=== PATIENT | female | born 1935 | race Caucasian/White ===

== ENCOUNTER 2018-05-10 08:40 | Inpatient (IN) | payer OTHER ==
--- NOTE | 2018-05-10 09:06 | CPEKG ---
Heart Rate: 76 RR Interval: 789 P-R Interval: 240 QRSD Interval: 100 QT Interval: 408 QTC Interval: 459 P Diamond: 66 QRS Diamond: -33 T Wave Diamond: 70 EKG Severity - ABNORMAL ECG - EKG Impression: SINUS RHYTHM EKG Impression: FIRST DEGREE AV BLOCK EKG Impression: LEFT AXIS DEVIATION EKG Impression: CONSIDER ANTEROSEPTAL INFARCT Electronically Signed By: Marvin Carrington 10-May-2018 14:16:28
[2018-05-10] MEDS ORDERED: HYDROmorphONE/DILAUDID 1 MG/ML INJ ONE ×2 (09:28→16:32)
[2018-05-10] MEDS ORDERED: HYDROmorphONE/DILAUDID 1 MG/ML INJ IVP ONE ×2 (09:33→11:19)
--- NOTE | 2018-05-10 09:43 | EDPHY ---
H & P Time Seen by Provider: 05/10/18 09:42 HPI/ROS: Chief complaint. Fall, hip pain HPI. 83-year-old female with left hip pain. Here by EMS. Patient has had dizziness both lying down and standing for the past 3 months. Today she was getting ready for breakfast and got dizzy and fell in her apartment. She was unable to get back up. She has pain in her left hip. Denies hitting her head or losing consciousness. No neck pain. She is not on blood thinners. No other injuries. Denies chest discomfort or trouble breathing. No abdominal pain. Patient has frequent falls. Last meal was yesterday evening ROS Constitutional. Dizziness Eyes. no problems with vision ENT. no sore throat, no nasal drainage Cardiovascular. no chest pain Respiratory. no shortness of breath, no cough Abdominal. no abdominal pain, no nausea/vomiting, no diarrhea . no problems urinating MS. Left hip pain Skin. no rash Lymph. no swollen glands Neuro. no headache, dizziness, no difficulty walking or with speech Past Medical/Surgical History: Past medical history is significant for macular degeneration, hypothyroid, dyslipidemia, depression, osteoporosis, TIA, forearm fracture Social History: Single, nonsmoker, no alcohol Smoking Status: Never smoked Physical Exam: General Appearance: Alert well-developed female moderate distress vital signs are stable Eyes: Pupils equal and round no pallor or injection. ENT, Mouth: Mucous membranes are moist. Respiratory: There are no retractions, lungs are clear to auscultation. Cardiovascular: Regular rate and rhythm. Gastrointestinal: Abdomen is soft and nontender, no masses, bowel sounds normal. Neurological: Awake and alert, sensory and motor exams grossly normal. Skin: Warm and dry, no rashes. Musculoskeletal: Neck is supple nontender. No T, L, S spine tenderness Extremities pain to range of motion left hip. Psychiatric: Patient is oriented X 3, there is no agitation. Constitutional: Initial Vital Signs Temperature (C) 36.8 C 05/10/18 08:41 Heart Rate 78 05/10/18 08:41 Respiratory Rate 16 05/10/18 08:41 Blood Pressure 125/67 H 05/10/18 08:41 O2 Sat (%) 88 L 05/10/18 08:41 O2 Delivery Mode Nasal Cannula O2 (L/minute) 2 Allergies/Adverse Reactions: Sulfa (Sulfonamide Antibiotics) Allergy (Verified 05/10/18 08:57) Home Medications: Medication Instructions Recorded Bupropion HCl [Wellbutrin Xl] 300 mg PO DAILY 05/09/16 Levothyroxine [Synthroid 50 mcg 50 mcg PO DAILY 05/09/16 (*)] Multivitamins [Multivitamin (*)] 1 each PO DAILY 05/09/16 Acetaminophen [Tylenol 325mg (*)] 650 mg PO Q6 PRN #0 tab 05/10/16 Cholecalciferol Vit D3 [Vitamin D3 5,000 units PO DAILY 05/10/16 (*)] Herbals/Supplements -Info Only 1 ea PO DAILY 05/10/16 Ibuprofen [Motrin (*)] 400 mg PO Q6 PRN 05/10/16 DULoxetine 05/10/18 Medical Decision Making - Diagnostics EKG Interpretation: EKG interpreted by me shows normal sinus rhythm with first-degree AV block. Left axis deviation. QRS otherwise normal. No significant ST elevation or depression. No arrhythmia. The rate is 76 Imaging Results: Imaging Impressions Hip X-Ray 05/10/18 08:55 Impression: Acute angulated and impacted left femoral neck fracture. Chest X-Ray 05/10/18 09:49 Impression: 1. Clear lungs. No acute process. 2. No displaced rib fractures. 3. Large hiatal hernia unchanged. X-ray of the left hip shows a femoral neck fracture. Chest x-ray shows probably large hiatal hernia. No pneumonia Procedures: Patient received IV fentanyl prior to arrival. She is given a 0.5 mg of Dilaudid in the emergency department ED Course/Re-evaluation: Re-evaluation at 10:30 a.m.. Patient is stable. Patient and I discussed imaging and lab results. We discussed treatment plan including recommendation for hospitalization and surgery. She expresses understanding and agreement. Pain is well controlled. I consulted and discussed case with Dr. Borges for Orthopedics. I consulted discussed case Dr. Cerrato, hospitalist, who agrees to the admission Differential Diagnosis: Fall with dizziness. The etiology of this is not clear. She does have a hip fracture. - Data Points Laboratory Results: Laboratory Results 05/10/18 08:50 05/10/18 08:50 05/10/18 05/10/18 05/10/18 08:50 08:50 08:50 WBC 4.96 10^3/uL 10^3/uL (3.80-9.50) RBC 5.23 10^6/uL 10^6/uL (4.18-5.33) Hgb 16.0 g/dL g/dL (12.6-16.3) Hct 47.3 % H % (38.0-47.0) MCV 90.4 fL fL (81.5-99.8) MCH 30.6 pg pg (27.9-34.1) MCHC 33.8 g/dL g/dL (32.4-36.7) RDW 13.4 % % (11.5-15.2) Plt Count 322 10^3/uL 10^3/uL (150-400) MPV 9.6 fL fL (8.7-11.7) Neut % (Auto) 64.9 % % (39.3-74.2) Lymph % (Auto) 21.2 % % (15.0-45.0) Hardin % (Auto) 11.3 % % (4.5-13.0) Eos % (Auto) 1.8 % % (0.6-7.6) Baso % (Auto) 0.6 % % (0.3-1.7) Nucleat RBC Rel Count 0.0 % % (0.0-0.2) Absolute Neuts (auto) 3.22 10^3/uL 10^3/uL (1.70-6.50) Absolute Lymphs (auto) 1.05 10^3/uL 10^3/uL (1.00-3.00) Absolute Monos (auto) 0.56 10^3/uL 10^3/uL (0.30-0.80) Absolute Eos (auto) 0.09 10^3/uL 10^3/uL (0.03-0.40) Absolute Basos (auto) 0.03 10^3/uL 10^3/uL (0.02-0.10) Absolute Nucleated RBC 0.00 10^3/uL 10^3/uL (0-0.01) Immature Gran % 0.2 % % (0.0-1.1) Immature Gran # 0.01 10^3/uL 10^3/uL (0.00-0.10) PT 13.0 SEC SEC (12.0-15.0) INR 0.96 (0.83-1.16) APTT 27.3 SEC SEC (23.0-38.0) Sodium 140 mEq/L mEq/L (135-145) Potassium 4.2 mEq/L mEq/L (3.3-5.0) Chloride 104 mEq/L mEq/L (97-110) Carbon Dioxide 26 mEq/l mEq/l (22-31) Anion Gap 10 mEq/L mEq/L (8-16) BUN 21 mg/dL mg/dL (7-23) Creatinine 0.8 mg/dL mg/dL (0.6-1.0) Estimated GFR > 60 Glucose 101 mg/dL H mg/dL (70-100) Calcium 10.0 mg/dL mg/dL (8.5-10.4) Medications Given: Discontinued Medications Hydromorphone HCl (Dilaudid) 0.5 mg IVP EDNOW ONE Stop: 05/10/18 09:34 Last Admin: 05/10/18 09:35 Dose: 0.5 mg Hydromorphone HCl (Dilaudid) 0.5 mg IVP EDNOW ONE Stop: 05/10/18 11:20 Last Admin: 05/10/18 11:20 Dose: 0.5 mg Departure - Departure Disposition: [facility] Inpatient Acute Clinical Impression: Closed left hip fracture Qualifiers: Encounter type: initial encounter Qualified Code(s): S72.002A - Fracture of unspecified part of neck of left femur, initial encounter for closed fracture Condition: Fair
[2018-05-10 10:02] LABS: PLATELET COUNT 322 10^3/uL (150-400)
[2018-05-10 10:04] LABS: INR 0.96 (0.83-1.16)
[2018-05-10] MEDS ORDERED: ONDANSETRON DISINTEGRATING 4 MG TAB PO PRN (10:44)
[2018-05-10] MEDS ORDERED: ACETAMINOPHEN 325 MG TAB PO PRN (10:44)
[2018-05-10] MEDS ORDERED: DOCUSATE SODIUM 100 MG CAP PO PRN (12:40)
--- NOTE | 2018-05-10 13:09 | GHP ---
[f rep st] HISTORY AND PHYSICAL DATE OF ADMISSION: 05/10/2018 CHIEF COMPLAINTS: Left hip pain. HISTORY OF PRESENT ILLNESS: An 83-year-old female, history of TIA, macular degeneration, intermitten t vertigo presenting with left hip pain. This morning she was getting ready for breakfast and got di zzy and fell in her apartment and was unable to get up. Developed pain in her left hip immediately, 7/10 now. Did not hit her head. Denies loss of consciousness. No prodromal chest pain, shortness o f breath, palpitations. Denies fevers, chills, or sweats. No nausea, vomiting, diarrhea. No dysuri a or urinary frequency. States she uses her walker 07/05. Per daughter, has not complained of dizzy spells for the past 2 years, but this apparently has been occurring in the last couple of months. Sheri ragsdale notes this when she moves her head side to side while lying in bed. No slurred speech, unstable ga it or focal weakness. X-ray obtained in the ED showing a left femoral neck fracture. REVIEW OF SYSTEMS: I completed a 10-point review of systems, negative except as noted in HPI. PAST MEDICAL HISTORY: Vertigo, polio, depression, macular degeneration, TIA, hyperlipidemia, heart m urmur, hypothyroidism. PAST SURGICAL HISTORY: ORIF of left forearm and humerus. FAMILY HISTORY: Dad with heart disease. ALLERGIES: Sulfa. SOCIAL HISTORY: She lives at [facility] and [facility]. No alcohol, tobacco or illicit' s. HOME MEDICATIONS: Wellbutrin 150 mg daily, Advil PM nightly, Colace, vitamin D3 5000 units daily, le vothyroxine 50 mcg daily, ibuprofen three times daily, herbal supplement, Cymbalta 30 mg daily. PHYSICAL EXAMINATION: VITAL SIGNS: Temperature 36.8, blood pressure 125/67, heart rate in the 80s, respiration is 88 on room air, 94% on 2 L. GENERAL: Well appearing, lying in bed, no acute distress . HEENT: PERRLA. Dry mucous membranes. CV: Regular rate, rhythm. LUNGS: Clear anteriorly. ABD OMEN: Soft, nontender, nondistended. Positive bowel sounds. : No Richter. MUSCULOSKELETAL: Left leg is shortened. NEUROLOGIC: 2 through 12 intact. Vertigo is elicited with a [id number]-xips head m ovements. No nystagmus. PSYCH: She is alert and oriented x3. LABS: WBC 4, hemoglobin 16, hematocrit 47, coags within normal. Sodium 140, potassium 4.2, chloride 104, carbon dioxide 26, BUN 21, creatinine 0.8, glucose 101, calcium 10. Troponin 0.00. Chest x-ray personally reviewed by me, a large hiatal hernia. Hip x-ray personally reviewed, left fe moral neck fracture. EKG is personally reviewed by me, first-degree heart block. ASSESSMENT/PLAN: 1. Left femoral neck fracture: This appears to be mechanical with dizziness. She denies loss of co nsciousness or prodromal symptoms. Will monitor on telemetry. Dr. Borges to consult. She is n.p. o., IV fluids. 2. Dizziness: Initial troponin EKG negative for ischemia. Check a urinalysis to rule out urinary t ract infection. Check a TSH. Does appear to be benign paroxysmal positional vertigo given symptoms and dizziness elicited on my exam. We will have PT/OT evaluate for exercises. Her nightly Benadryl medication may be contributing. I will discontinue this and give her melatonin. 3. Hyperlipidemia. She is not on a statin. 4. Depression. Cymbalta and Wellbutrin. 5. History of a transient ischemic attack. Monitor on telemetry. 6. Hypothyroidism. Levothyroxine. 7. Acute left hip pain due to fracture. Schedule Tylenol, low-dose opioids. 8. Deep venous thrombosis. Prophylaxis sequential compression devices. 9. Diet n.p.o. for procedure. DISPOSITION: Patient warrants inpatient admission for acute fracture, a surgical consultation and PT . /[id number]/MODL
[2018-05-10] MEDS: ONDANSETRON 4 MG/2 ML VIAL IVP PRN ×2 (14:06→22:25)
[2018-05-10] MEDS: NS 1,000 ML IV SCH (14:06)
[2018-05-10] MEDS ORDERED: BUPIVACAINE/EPI 0.5% 30 ML SDV ONE (16:19)
[2018-05-10] MEDS ORDERED: ceFAZolin 1 GM/5 ML SYR ONE ×2 (16:20→19:09)
[2018-05-10] MEDS ORDERED: LR 1,000 ML IV ONE (16:36)
[2018-05-10] MEDS: HYDROmorphONE/DILAUDID 2 MG/ML INJ IVP PRN ×2 (16:39→17:39)
[2018-05-10] MEDS ORDERED: ceFAZolin 2 GM/DEXTROSE 100 ML IV ONE (17:37)
--- NOTE | 2018-05-10 18:05 | GCON ---
[f rep st] CONSULTATION REASON FOR CONSULTATION: Left femoral neck fracture. HPI: Geetha is an 83-year-old female, who had a fall today at her assisted living apartment, landed on her hip. Was brought to the emergency department ED. X-rays were obtained, which showed an impacted, shortened, angulated femoral neck fracture on the left. Decision made to proceed with a hemiarthroplasty on the left. PRIOR MEDICAL HISTORY: TIA, vertigo, hyperlipidemia, heart murmur, hypothyroidism, macular degeneration, depression. PRIOR SURGICAL HISTORY: Open reduction and internal fixation to a forearm fracture sustained in a fall. ALLERGIES: Sulfa medication gives her hives. MEDICATIONS: Wellbutrin 150 mg daily, Cymbalta 30 mg, levothyroxine 50 mcg, Advil PM, vitamin D3, ibuprofen. REVIEW OF SYSTEMS: No shortness of breath. No chest pain. Is complaining, obviously, of left hip pain. PHYSICAL EXAM: GENERAL: She is alert and oriented x3. Her kids are at the bedside. Her daughter is her power of attorney general. Left hip skin is intact. There is some ecchymosis over the greater trochanter. Leg is shortened and internally rotated. HEENT: Normocephalic atraumatic. Extraocular muscles intact. NECK: Supple. There is no lymphadenopathy and no JVD. CHEST: Clear to auscultation. CARDIOVASCULAR: Regular rate and rhythm. ABDOMEN: Soft, nontender, nondistended. EXTREMITIES: Left hip skin intact. Ecchymosis over greater trochanter. Compartments are soft. 5/5 ankle dorsiflexion and plantar flexion strength. 1+ dorsalis pedis and posterior tibial pulses. X-RAYS: Three views of the hip taken today in the emergency department show a shortened, impacted, angulated left femoral neck fracture. ASSESSMENT: Femoral neck fracture, displaced, left. PLAN: Given her age, history of falls, I think the best course of action would be to proceed with a bipolar hemiarthroplasty on the left. That will allow her to mobilize a bit easier, full weightbearing. We will get this set up. Risks and benefits including infection, blood clots, and 1% dislocation rate were all discussed. She understands these risks. The daughter did sign the consent form as a power of attorney general. /[id number]/MODL MTDD
[2018-05-10] MEDS ORDERED: fentaNYL 100 MCG/2 ML INJ ONE ×3 (18:26→20:22)
[2018-05-10] MEDS ORDERED: PROPOFOL 200 MG/20 ML VIAL ONE (18:27)
[2018-05-10] MEDS ORDERED: LIDOCAINE 2% 5 ML SDV ONE (18:28)
[2018-05-10] MEDS ORDERED: ROCURONIUM 50 MG/5 ML VIAL ONE (18:37)
--- NOTE | 2018-05-10 19:04 | PDANEPAE ---
ANE Past Medical History - Cardiovascular History Hx Hypertension: No Hx Arrhythmias: No Hx Chest Pain: No Hx CHF / Valvular Disease: No Hx Palpitations: No - Pulmonary History Hx COPD: No Hx Asthma/Reactive Airway Disease: No Hx Recent Upper Respiratory Infection: No Hx Oxygen in Use at Home: No Hx Sleep Apnea: No Sleep Apnea Screening Result - Last Documented: Negative - Endocrine History Hx Diabetes: No ANE Review of Systems Review of systems is: negative Review of Systems: - Exercise capacity Exercise capacity: >=4 METS ANE Patient History - Allergies Allergies/Adverse Reactions: Sulfa (Sulfonamide Antibiotics) Allergy (Verified 05/10/18 08:57) - Home Medications Home medications: home medication list seen and reviewed Home Medications: Levothyroxine [Synthroid 50 mcg (*)] 50 mcg PO DAILY 05/09/16 [Last Taken Unknown] Cholecalciferol Vit D3 [Vitamin D3 (*)] 5,000 units PO DAILY 05/10/16 [Last Taken Unknown] Herbals/Supplements -Info Only 1 ea PO DAILY 05/10/16 [Last Taken Unknown] Ibuprofen [Motrin (*)] 400 mg PO TID 05/10/16 [Last Taken Unknown] DULoxetine [Cymbalta 30 MG (*)] 30 mg PO DAILY 05/10/18 [Last Taken Unknown] Docusate Sodium [Colace 100 MG (*)] 100 mg PO DAILY PRN 05/10/18 [Last Taken Unknown] Ibuprofen/Diphenhydramine Cit [MOTRIN PM CAPLET] 1 each PO HS 05/10/18 [Last Taken Unknown] buPROPion XL [Wellbutrin Xl] 150 mg PO DAILY 05/10/18 [Last Taken Unknown] - NPO status NPO Since - Liquids (Date): 05/10/18 NPO Since - Liquids (Time): 00:00 NPO Since - Solids (Date): 05/10/18 NPO Since - Solids (Time): 00:00 - Smoking Hx Smoking Status: Never smoked ANE Labs/Vital Signs - Labs Result Diagrams: 05/10/18 08:50 05/10/18 08:50 - Vital Signs Blood Pressure: 127/83 Heart Rate: 95 Respiratory Rate: 15 O2 Sat (%): 95 Height: 160.02 cm Weight: 63.503 kg ANE Physical Exam - Airway Neck exam: FROM Mallampati Score: Class 2 Mouth exam: normal dental/mouth exam - Pulmonary Pulmonary: no respiratory distress - Cardiovascular Cardiovascular: regular rate and rhythym - ASA Status ASA Status: II, E ANE Anesthesia Plan Anesthesia Plan: general endotracheal anesthesia Urgent/Emergent Case: Ralph orellana completed preop but documented later for safe timely pt care
[2018-05-10] MEDS ORDERED: HYDROmorphONE/DILAUDID 2 MG/ML INJ ONE (19:05)
[2018-05-10] MEDS ORDERED: ceFAZolin 1 GM VIAL ONE (19:08)
--- NOTE | 2018-05-10 19:15 | POSTANESTH ---
Post Anesthetic Evaluation Cardiovascular Status: Normal, Stable Respiratory Status: Normal, Stable Level of Consciousness/Mental Status: Can Participate in Eval, Moderately Sleepy Pain Control: Adequate, Prn Tx Ordered Nausea/Vomiting Control: Adequate, Prn Tx Ordered Complications Possibly Related to Anesthesia: None Noted
[2018-05-10] MEDS ORDERED: DEXAMETHASONE 4 MG/ML VIAL ONE (19:16)
[2018-05-10] MEDS ORDERED: SUGAMMADEX SODIUM 200 MG/2 ML VIAL IVP ONE (19:16)
[2018-05-10] MEDS ORDERED: ONDANSETRON 4 MG/2 ML VIAL ONE (19:16)
[2018-05-10] MEDS ORDERED: oxyCODONE IR 5 MG TAB PO PRN (19:36)
[2018-05-10] MEDS ORDERED: ACETAMINOPHEN 500 MG TAB PO PRN (19:36)
[2018-05-10] MEDS ORDERED: LR 500 ML IV PRN (19:36)
[2018-05-10] MEDS ORDERED: HYDROmorphONE/DILAUDID 1 MG/ML INJ IVP PRN (19:36)
[2018-05-10] MEDS ORDERED: PROMETHAZINE HCL 25 MG/ML INJ IVP PRN (19:36)
[2018-05-10] MEDS ORDERED: fentaNYL 100 MCG/2 ML INJ IVP PRN (19:36)
[2018-05-10] MEDS ORDERED: NALOXONE HCL 0.4 MG/ML INJ IVP PRN (19:36)
[2018-05-10] MEDS ORDERED: ONDANSETRON 4 MG/2 ML VIAL IVP PRN (19:36)
[2018-05-10] MEDS ORDERED: HYDROCODONE/APAP 5/325 TAB PO PRN (19:36)
[2018-05-10] MEDS ORDERED: ALBUTEROL 3 ML DEYVIAL IH PRN (19:36)
[2018-05-10] MEDS ORDERED: LABETALOL HCL 5 MG/ML 20 ML MDV IVP PRN (19:36)
--- NOTE | 2018-05-10 19:58 | POSTOPPROG ---
Post Op Note Date of Operation: 05/10/18 Surgeon: Nasir Borges Records Analysis Manager: dickson Anesthesiologist: joesph Anesthesia: GET(General Endotracheal) Pre-op Diagnosis: Lt fem neck fx Post-op Diagnosis: same Procedure: bipolar hemiarthroplasty Inf/Abcess present in the surg proc area at time of surgery?: No EBL: 50-100 Complications: none
[2018-05-10] MEDS ORDERED: D5W 1/2 NS W/ 20 KCl/L 1,000 ML IV SCH (20:00)
--- NOTE | 2018-05-10 20:22 | GOP ---
[f rep st] OPERATIVE REPORT DATE OF OPERATION: 05/10/2018 SURGEON: Nasir Borges MD CARE ATTENDANT: Aman Ness CST, [facility] ANESTHESIA: General. PREOPERATIVE DIAGNOSIS: Left femoral neck fracture. POSTOPERATIVE DIAGNOSIS: Left femoral neck fracture. PROCEDURE PERFORMED: Bipolar hemiarthroplasty, left. FINDINGS: ESTIMATED BLOOD LOSS: 100 mL. INDICATIONS: The patient is an 83-year-old female, who slipped and fell, sustained an impacted displ aced femoral neck fracture on the left. Decision was made to proceed with a hemiarthroplasty. DESCRIPTION OF PROCEDURE: After full informed consent was obtained, patient taken to the operating r oom, placed supine on the operating table. Time-out was performed. Patient was identified. Correct site was identified, matched to the radiographs in the room. She received 2 g of Ancef preoperative ly. Following the induction of general endotracheal tube anesthesia, left lower extremity was preppe d and draped in usual sterile fashion. She was positioned in the lateral position on the pegboard. All bony prominences well padded. Following the sterile prep, I made a standard posterior incision. Soft tissues were carefully dissected. I incised the IT band and the gluteal muscles. They were no t much external rotators remaining. I took those down, tagged them for later repair, freshened up th e femoral neck cut, and removed the head and neck. We trialed a head, measured a 44, trialed a 44, 4 5, and 46. 46 cup gave us the best stability and fit. We then broached the femur up to a size 7 wit h good stability, trialed a neutral head 127 degree and +4. The +4 gave us a little too length and t he hip was tight, so I backed down to a 0, removed all the trial implants, irrigated the wound, place d the final stem and the ball configuration, and tapped it in place. Reduced the hip a final time. Again good stability, good leg length mormonism. Wound was irrigated a final time. External rotat ors were repaired back to the greater trochanter using #2 FiberWire. Superficial layers closed with 0 Vicryl. Skin superficial layers closed with 2-0 Vicryl. Skin was closed with ervin. I instille d 25 mL of 0.5% Marcaine with epinephrine on the incision. Sterile dressing was applied. Adductor w edge. Patient was transferred back to her hospital bed, and taken to the recovery room in satisfacto ry condition. There were no immediate intraoperative complications. Aman Ness's assistance was r equired throughout the entire case. IMPLANTS USED: A Richard bipolar size 46 and 26+ 0 head. 127-degree Accolade 2 size 7 femoral stem. COMPLICATIONS: None. DRAINS: None. /[id number]/MODL
[2018-05-10] MEDS: ACETAMINOPHEN 500 MG TAB PO SCH ×2 (21:51→22:30)
[2018-05-10] MEDS: IBUPROFEN 200 MG TAB PO SCH ×2 (21:52→22:30)
[2018-05-10] MEDS: MELATONIN 3 MG TAB PO SCH (22:30)
--- NOTE | 2018-05-11 08:04 | PDMN ---
Medical Necessity Medical necessity: Pt meets INPT criteria per MD as of 05/10/18 and [facility] S-600 Hip : Displaced Fracture of Femoral Neck, Hemiarthroplasty (L femoral neck fracture requiring bipolar hemiarthroplasty, left; est. LOS >2 MN).
[2018-05-11] MEDS ORDERED: PROMETHAZINE HCL 25 MG/ML INJ IVP PRN (08:43)
[2018-05-11] MEDS ORDERED: Herbals/Supplements -Info Only PO SCH (09:00)
[2018-05-11] MEDS: CHOLECALCIFEROL VIT D3 1,000 UNITS TAB PO SCH (10:16)
[2018-05-11] MEDS: ACETAMINOPHEN 500 MG TAB PO SCH ×3 (10:17→20:25)
[2018-05-11] MEDS: buPROPion XL 150 MG TAB PO SCH (10:19)
[2018-05-11] MEDS: DULoxetine 30 MG CAP PO SCH (10:20)
[2018-05-11] MEDS: IBUPROFEN 200 MG TAB PO SCH (10:20)
[2018-05-11] MEDS: LEVOTHYROXINE 50 MCG TAB PO SCH (10:20)
[2018-05-11] MEDS: NS 1,000 ML IV SCH (11:46)
[2018-05-11] MEDS ORDERED: LACTULOSE 20 GM/30 ML UDCUP PO PRN (12:48)
[2018-05-11] MEDS ORDERED: BISACODYL 10 MG SUPP PR PRN (12:48)
[2018-05-11] MEDS: POLYETHYLENE GLYCOL 3350 17 GM PKT PO PRN (13:22)
[2018-05-11] MEDS: ENOXAPARIN 40 MG/0.4 ML SYR SC SCH (13:22)
[2018-05-11] MEDS: oxyCODONE IR 5 MG TAB PO PRN ×2 (13:41→20:27)
--- NOTE | 2018-05-11 13:42 | HOSPPROG ---
Hospitalist Progress Note Assessment/Plan: #Left femoral neck fracture: s/p hemiarthroplasty -schedule APAP, 2.5mg oxycodone PRN #Dizzy/BPPV: PT for Eply exercises -normal TSH, UA pending # # Objective: Vital Signs Temp Pulse Resp BP Pulse Ox 36.7 C 74 19 108/55 L 93 05/11/18 11:59 05/11/18 11:59 05/11/18 11:59 05/11/18 11:59 05/11/18 11:59 Laboratory Results 05/11/18 04:20 05/11/18 04:20 05/10/18 05/11/18 05/12/18 05:59 05:59 05:59 Intake Total 2315 Output Total 575 150 Balance 1740 -150 PT 13.0 SEC (12.0-15.0) 05/10/18 08:50 INR 0.96 (0.83-1.16) 05/10/18 08:50 ICD10 Worksheet Patient Problems: Problems Problem Status Onset Closed left hip fracture Acute Hypoxemia Acute Risk for falls Acute Vertigo Acute
--- NOTE | 2018-05-11 16:40 | SOAPPROG ---
SOAP Progress Note Assessment/Plan: Assessment: Plan: 05/11/18 16:39 POD#1 LT hemiarthroplaty PT/OT lovenox will need snf Subjective: feeling ok got oob with PT Objective: dressing c/d/i leg lengths equal calf soft 4/5 df/pf Vital Signs Temp Pulse Resp BP Pulse Ox 37.7 C 93 18 117/73 96 05/11/18 15:45 05/11/18 15:45 05/11/18 15:45 05/11/18 15:45 05/11/18 15:45 Laboratory Results 05/11/18 04:20 05/11/18 04:20 05/10/18 05/11/18 05/12/18 05:59 05:59 05:59 Intake Total 2315 Output Total 575 150 Balance 1740 -150 PT 13.0 SEC (12.0-15.0) 05/10/18 08:50 INR 0.96 (0.83-1.16) 05/10/18 08:50 ICD10 Worksheet Patient Problems: Problems Problem Status Onset Closed left hip fracture Acute Hypoxemia Acute Risk for falls Acute Vertigo Acute
[2018-05-11] MEDS: SENNOSIDES/DOCUSATE SODIUM TAB PO SCH (20:25)
[2018-05-11] MEDS: MELATONIN 3 MG TAB PO SCH (20:27)
[2018-05-12] MEDS: oxyCODONE IR 5 MG TAB PO PRN (03:35)
--- NOTE | 2018-05-12 07:57 | SOAPPROG ---
SOAP Progress Note Assessment/Plan: Assessment: Plan: 05/11/18 16:39 POD#1 LT hemiarthroplaty PT/OT lovenox will need snf 05/12/18 07:57 POD#2 LT hemiarthroplasty lovenox PT/OT Subjective: a little painful o/n Objective: dressing c/d/i leg lengths equal calf soft 4/5 df/pf Vital Signs Temp Pulse Resp BP Pulse Ox 36.8 C 90 17 93/50 L 90 L 05/12/18 02:51 05/12/18 02:51 05/12/18 02:51 05/12/18 02:51 05/12/18 02:51 Laboratory Results 05/11/18 04:20 05/11/18 04:20 05/11/18 05/12/18 05/13/18 05:59 05:59 05:59 Intake Total 2315 600 Output Total 575 650 Balance 1740 -50 PT 13.0 SEC (12.0-15.0) 05/10/18 08:50 INR 0.96 (0.83-1.16) 05/10/18 08:50 ICD10 Worksheet Patient Problems: Problems Problem Status Onset Closed left hip fracture Acute Hypoxemia Acute Risk for falls Acute Vertigo Acute
[2018-05-12] MEDS: CHOLECALCIFEROL VIT D3 1,000 UNITS TAB PO SCH (08:23)
[2018-05-12] MEDS: DULoxetine 30 MG CAP PO SCH (08:24)
[2018-05-12] MEDS: buPROPion XL 150 MG TAB PO SCH (08:25)
[2018-05-12] MEDS: LEVOTHYROXINE 50 MCG TAB PO SCH (08:25)
[2018-05-12] MEDS: ACETAMINOPHEN 500 MG TAB PO SCH ×3 (08:25→20:13)
[2018-05-12] MEDS: POLYETHYLENE GLYCOL 3350 17 GM PKT PO PRN (08:26)
[2018-05-12] MEDS: ENOXAPARIN 40 MG/0.4 ML SYR SC SCH (08:26)
[2018-05-12] MEDS: SENNOSIDES/DOCUSATE SODIUM TAB PO SCH ×2 (08:27→20:14)
[2018-05-12] MEDS: MAGNESIUM HYDROXIDE 30 ML UDCUP PO PRN (08:39)
--- NOTE | 2018-05-12 09:50 | HOSPPROG ---
Hospitalist Progress Note Assessment/Plan: #Left femoral neck fracture: s/p hemiarthroplasty -schedule APAP, 2.5mg oxycodone PRN -working with PT #Dizzy/BPPV: PT for Eply exercises -normal TSH, UA pending #Depression: Cymbalta, Wellbutrin #Hypothyroidism: LT4, TSH normal #Macular degeneration: advised her to use walker 07/05 #h/o TIA: no recent sxs #Diet: regular #DVT ppx: Lovenox #Disp: SNF pending, d/w son at bedside Subjective: didn't sleep last night due to pain Objective: Vital Signs Temp Pulse Resp BP Pulse Ox 37.2 C 95 18 118/75 91 L 05/12/18 08:30 05/12/18 08:30 05/12/18 08:30 05/12/18 08:30 05/12/18 08:30 Laboratory Results 05/11/18 04:20 05/11/18 04:20 05/11/18 05/12/18 05/13/18 05:59 05:59 05:59 Intake Total 2315 600 Output Total 575 650 Balance 1740 -50 PT 13.0 SEC (12.0-15.0) 05/10/18 08:50 INR 0.96 (0.83-1.16) 05/10/18 08:50 - Physical Exam Constitutional: no apparent distress Ears, Nose, Mouth, Throat: moist mucous membranes Cardiovascular: regular rate and rhythym Respiratory: no respiratory distress Gastrointestinal: normoactive bowel sounds Genitourinary: no bladder fullness Skin: warm Musculoskeletal: other (left hip surigical site dressed, C/D/I) Psychiatric: interacting appropriately ICD10 Worksheet Patient Problems: Problems Problem Status Onset Closed left hip fracture Acute Hypoxemia Acute Risk for falls Acute Vertigo Acute
--- NOTE | 2018-05-12 12:40 | ASMTCMCOM ---
CM Note CM Note Notes: Chart reviewed. Pt s/p surgical repair of hip fracture. Per therapy SNF recommended. Family ( daughter Ariadne [phone]) prefers [facility] or [facility]. Referrals placed via allscripts. CM to follow. Plan: DC to SNF when medically cleared for discharge. Date Signed: 05/12/2018 12:39 PM Electronically Signed By:Christel Starkey RN
[2018-05-12] MEDS: MELATONIN 3 MG TAB PO SCH (20:13)
--- NOTE | 2018-05-13 09:38 | PDIAF ---
- Diagnosis Diagnosis: left femoral neck fracture Code Status: Full Code - Medication Management Discharge Medications: Medications to Continue on Transfer Levothyroxine [Synthroid 50 mcg (*)] 50 mcg PO DAILY 05/09/16 [Last Taken Unknown] Cholecalciferol Vit D3 [Vitamin D3 (*)] 5,000 units PO DAILY 05/10/16 [Last Taken Unknown] Herbals/Supplements -Info Only 1 ea PO DAILY 05/10/16 [Last Taken Unknown] DULoxetine [Cymbalta 30 MG (*)] 30 mg PO DAILY 05/10/18 [Last Taken Unknown] Docusate Sodium [Colace 100 MG (*)] 100 mg PO DAILY PRN 05/10/18 [Last Taken Unknown] buPROPion XL [Wellbutrin 150mg XL] 150 mg PO DAILY 05/10/18 [Last Taken Unknown] Acetaminophen [Tylenol ES 500 mg (*)] 650 mg PO TID tab 05/13/18 [Last Taken Unknown] Enoxaparin [Lovenox 40 MG (*)] 40 mg SC DAILY #10 syr 05/13/18 [Last Taken Unknown] Ibuprofen [Motrin (*)] 400 mg PO Q8H PRN #0 05/13/18 [Last Taken Unknown] Melatonin [Melatonin 3 MG (*)] 3 mg PO HS tab 05/13/18 [Last Taken Unknown] Sennosides/Docusate Sodium [Senokot-S] 1 - 2 tab PO BID tab 05/13/18 [Last Taken Unknown] Discharge Medications: Refer to the Discharge Home Medication list for PRN reason. - Orders Services needed: Registered Nurse, Master Electronic Development Technician, Physical Therapy, Occupational Therapy Diet Recommendation: no restrictions on diet Diet Texture: Regular Texture Diet - Follow Up Care Current Providers and Referrals: HAYLEY VELIZ [Other] - As per Instructions Nasir Borges MD [Medical Doctor] -
[2018-05-13] MEDS: CHOLECALCIFEROL VIT D3 1,000 UNITS TAB PO SCH (09:51)
[2018-05-13] MEDS: ACETAMINOPHEN 500 MG TAB PO SCH ×3 (09:53→20:52)
[2018-05-13] MEDS: DULoxetine 30 MG CAP PO SCH (09:53)
[2018-05-13] MEDS: oxyCODONE IR 5 MG TAB PO PRN (09:54)
[2018-05-13] MEDS: LEVOTHYROXINE 50 MCG TAB PO SCH (09:55)
[2018-05-13] MEDS: SENNOSIDES/DOCUSATE SODIUM TAB PO SCH ×2 (09:55→20:53)
[2018-05-13] MEDS: buPROPion XL 150 MG TAB PO SCH (09:55)
[2018-05-13] MEDS: ENOXAPARIN 40 MG/0.4 ML SYR SC SCH (09:56)
[2018-05-13] MEDS: POLYETHYLENE GLYCOL 3350 17 GM PKT PO PRN (09:56)
--- NOTE | 2018-05-13 15:20 | HOSPPROG ---
Hospitalist Progress Note Assessment/Plan: #Left femoral neck fracture: s/p hemiarthroplasty -schedule APAP, 2.5mg oxycodone PRN -working with PT #Dizzy/BPPV: PT for Eply exercises -normal TSH #Pyuria: no sxs, culture pending #Depression: Cymbalta, Wellbutrin #Hypothyroidism: LT4, TSH normal #Macular degeneration: advised her to use walker 24/ #h/o TIA: no recent sxs #Diet: regular #DVT ppx: Lovenox #Disp: will DC to [facility] tomorrow Subjective: no dizziness. Hip pain well-controlled Objective: Vital Signs Temp Pulse Resp BP Pulse Ox 36.9 C 83 18 116/64 93 05/13/18 07:52 05/13/18 07:52 05/13/18 07:52 05/13/18 07:52 05/13/18 07:52 Laboratory Results 05/11/18 04:20 05/11/18 04:20 05/12/18 05/13/18 05/14/18 05:59 05:59 05:59 Intake Total 600 1140 Output Total 650 1475 900 Balance -50 -335 -900 PT 13.0 SEC (12.0-15.0) 05/10/18 08:50 INR 0.96 (0.83-1.16) 05/10/18 08:50 - Time Spent With Patient Time Spent with Patient: greater than 25 minutes Time Spent with Patient: Greater than 25 minutes spent on this patients care, greater than 50% of time spent counseling, educating, and coordinating care regarding the above mentioned plan. - Physical Exam Constitutional: no apparent distress Eyes: PERRL Ears, Nose, Mouth, Throat: moist mucous membranes Cardiovascular: regular rate and rhythym Respiratory: no respiratory distress Gastrointestinal: normoactive bowel sounds Genitourinary: no bladder fullness Skin: warm Musculoskeletal: other (left hip surgical site dressed, C/D/I) Neurologic: AAOx3, CN II-XII Intact ICD10 Worksheet Patient Problems: Problems Problem Status Onset Closed left hip fracture Acute Hypoxemia Acute Risk for falls Acute Vertigo Acute
--- NOTE | 2018-05-13 15:21 | ASMTCMCOM ---
CM Note CM Note Notes: Recieved call from [facility] SNF in [place], they can accept pt tomorrow for rehab. Dtr Ariadne notified and agrees with plan. DC Plan: SNF/ [facility] Date Signed: 05/13/2018 03:20 PM Electronically Signed By:Fern Ashby RN
--- NOTE | 2018-05-13 15:47 | ASMTCMCOM ---
CM Note CM Note Notes: Received call back from Natacha at [facility] at [place], she just realized pt has a [employer] plan and they are not yet in network. She called and notified the patient's dtr Ariadne. of [place] can accept pt but cannot take her until Sunday. CM notified . DC Plan: [facility] [place] Date Signed: 05/13/2018 03:46 PM Electronically Signed By:Fern Ashby RN
--- NOTE | 2018-05-13 19:21 | SOAPPROG ---
SOAP Progress Note Assessment/Plan: Assessment: Mercedes is s/p left hip hemiarthroplasty. She is doing well with mild pain. PE: Dressing changed today. Incision is clean and dry without surrounding erythema, warmth, or drainage. Calf soft to compression without pain. DF/PF intact. NV intact LLE Plan: Plan for discharge to SNF. WBAT LLE. Posterior hip precautions. Abductor wedge to be worn while in bed. PT/OT. Xareto x10 days post op. 05/13/18 19:19 Objective: Vital Signs Temp Pulse Resp BP Pulse Ox 37.2 C 84 16 109/69 92 05/13/18 16:00 05/13/18 16:00 05/13/18 16:00 05/13/18 16:00 05/13/18 16:00 Laboratory Results 05/11/18 04:20 05/11/18 04:20 05/12/18 05/13/18 05/14/18 05:59 05:59 05:59 Intake Total 600 1140 Output Total 650 1475 900 Balance -50 -335 -900 PT 13.0 SEC (12.0-15.0) 05/10/18 08:50 INR 0.96 (0.83-1.16) 05/10/18 08:50 ICD10 Worksheet Patient Problems: Problems Problem Status Onset Closed left hip fracture Acute Hypoxemia Acute Risk for falls Acute Vertigo Acute
[2018-05-13] MEDS: MELATONIN 3 MG TAB PO SCH (20:53)
[2018-05-13] MEDS: MAGNESIUM HYDROXIDE 30 ML UDCUP PO PRN (20:57)
[2018-05-14] MEDS: CHOLECALCIFEROL VIT D3 1,000 UNITS TAB PO SCH (08:58)
[2018-05-14] MEDS: LEVOTHYROXINE 50 MCG TAB PO SCH (08:59)
[2018-05-14] MEDS: buPROPion XL 150 MG TAB PO SCH (08:59)
[2018-05-14] MEDS: SENNOSIDES/DOCUSATE SODIUM TAB PO SCH ×2 (09:03→20:54)
[2018-05-14] MEDS: DULoxetine 30 MG CAP PO SCH (09:04)
[2018-05-14] MEDS: ENOXAPARIN 40 MG/0.4 ML SYR SC SCH (09:05)
--- NOTE | 2018-05-14 09:37 | HOSPPROG ---
Hospitalist Progress Note Assessment/Plan: #Left femoral neck fracture: s/p hemiarthroplasty -schedule APAP. Stop oxycodone due to AMS -plan to DC SNF tomorrow #Acute hypoxic resp failure: no oxygen at home. CXR pending #Dizzy/BPPV: PT for Eply exercises -normal TSH #Pyuria: no sxs, culture pending #Depression: Cymbalta, Wellbutrin #Hypothyroidism: LT4, TSH normal #Macular degeneration: advised her to use walker 07/05 #h/o TIA: no recent sxs #Diet: regular #DVT ppx: Lovenox for 2 wks post-op #Disp: will DC to [facility] tomorrow Subjective: pain controlled. Was confused yesterday after oxycodone Objective: Vital Signs Temp Pulse Resp BP Pulse Ox 36.7 C 72 16 119/69 95 05/14/18 08:00 05/14/18 08:00 05/14/18 08:00 05/14/18 08:00 05/14/18 08:00 Laboratory Results 05/11/18 04:20 05/11/18 04:20 05/13/18 05/14/18 05/15/18 05:59 05:59 05:59 Intake Total 1140 Output Total 1475 1800 300 Balance -335 -1800 -300 PT 13.0 SEC (12.0-15.0) 05/10/18 08:50 INR 0.96 (0.83-1.16) 05/10/18 08:50 - Time Spent With Patient Time Spent with Patient: greater than 25 minutes Time Spent with Patient: Greater than 25 minutes spent on this patients care, greater than 50% of time spent counseling, educating, and coordinating care regarding the above mentioned plan. - Physical Exam Constitutional: no apparent distress Eyes: PERRL Ears, Nose, Mouth, Throat: moist mucous membranes Cardiovascular: regular rate and rhythym Respiratory: other (diminished breath sounds) Gastrointestinal: normoactive bowel sounds Genitourinary: no bladder fullness Skin: warm Musculoskeletal: full muscle strength Neurologic: AAOx3, CN II-XII Intact Psychiatric: interacting appropriately ICD10 Worksheet Patient Problems: Problems Problem Status Onset Closed left hip fracture Acute Hypoxemia Acute Risk for falls Acute Vertigo Acute
[2018-05-14] MEDS: ACETAMINOPHEN 325 MG TAB PO SCH ×3 (11:17→20:52)
[2018-05-14] MEDS: POLYETHYLENE GLYCOL 3350 17 GM PKT PO PRN (11:20)
[2018-05-14] MEDS: ACETAMINOPHEN 500 MG TAB PO SCH (11:20)
[2018-05-14] MEDS: MAGNESIUM HYDROXIDE 30 ML UDCUP PO PRN (15:43)
[2018-05-14] MEDS: MELATONIN 3 MG TAB PO SCH (20:52)
[2018-05-15] MEDS: ENOXAPARIN 40 MG/0.4 ML SYR SC SCH ×2 (09:19→09:20)
[2018-05-15] MEDS: DULoxetine 30 MG CAP PO SCH (09:21)
[2018-05-15] MEDS: buPROPion XL 150 MG TAB PO SCH (09:21)
[2018-05-15] MEDS: LEVOTHYROXINE 50 MCG TAB PO SCH (09:22)
[2018-05-15] MEDS: CHOLECALCIFEROL VIT D3 1,000 UNITS TAB PO SCH (09:22)
[2018-05-15] MEDS: SENNOSIDES/DOCUSATE SODIUM TAB PO SCH (09:23)
[2018-05-15] MEDS: ACETAMINOPHEN 325 MG TAB PO SCH (09:24)
--- NOTE | 2018-05-15 12:15 | HOSPPROG ---
Hospitalist Progress Note Assessment/Plan: patient is an 83 y/o woman who was dizzy and fell at home. she sustained a left femoral neck fracture. Today is my first encounter w the patient, chart reviewed. #Left femoral neck fracture: s/p hemiarthroplasty -schedule APAP. Stop oxycodone due to AMS #Acute hypoxic resp failure: no oxygen at home. -chest x ray shows nothing acute, has a large hiatal hernia, poss small effusion , atelectasis #Dizzy/BPPV: resolved -normal TSH #Pyuria: urine cx shows no growth #Depression: Cymbalta, Wellbutrin #Hypothyroidism: LT4, TSH normal #Macular degeneration: advised her to use walker 07/05 #h/o TIA: no recent sxs #Diet: regular #DVT ppx: Lovenox for 2 wks post-op #Disp: will DC to [facility] Subjective: Marelene feels fine, eating and dirinking well. Objective: Vital Signs Temp Pulse Resp BP Pulse Ox 37.1 C 69 14 112/67 94 05/15/18 07:25 05/15/18 07:25 05/15/18 07:25 05/15/18 07:25 05/15/18 07:25 Microbiology 05/13/18 10:34 Urine Culture - Final Urine,Clean Catch Laboratory Results 05/11/18 04:20 05/11/18 04:20 05/14/18 05/15/18 05/16/18 05:59 05:59 05:59 Intake Total 450 Output Total 1800 300 Balance -1800 150 PT 13.0 SEC (12.0-15.0) 05/10/18 08:50 INR 0.96 (0.83-1.16) 05/10/18 08:50 - Physical Exam Constitutional: no apparent distress, appears nourished, not in pain Eyes: PERRL Ears, Nose, Mouth, Throat: hearing normal Respiratory: no respiratory distress Skin: warm Neurologic: AAOx3 Psychiatric: interacting appropriately ICD10 Worksheet Patient Problems: Problems Problem Status Onset Closed left hip fracture Acute Hypoxemia Acute Risk for falls Acute Vertigo Acute
--- NOTE | 2018-05-15 13:04 | PDIAF ---
- Diagnosis Diagnosis: left femoral neck fracture, diziness Code Status: Full Code - Medication Management Discharge Medications: Medications to Continue on Transfer Levothyroxine [Synthroid 50 mcg (*)] 50 mcg PO DAILY 05/09/16 [Last Taken Unknown] Cholecalciferol Vit D3 [Vitamin D3 (*)] 5,000 units PO DAILY 05/10/16 [Last Taken Unknown] Herbals/Supplements -Info Only 1 ea PO DAILY 05/10/16 [Last Taken Unknown] DULoxetine [Cymbalta 30 MG (*)] 30 mg PO DAILY 05/10/18 [Last Taken Unknown] Docusate Sodium [Colace 100 MG (*)] 100 mg PO DAILY PRN 05/10/18 [Last Taken Unknown] buPROPion XL [Wellbutrin 150mg XL] 150 mg PO DAILY 05/10/18 [Last Taken Unknown] Acetaminophen [Tylenol ES 500 mg (*)] 650 mg PO TID tab 05/13/18 [Last Taken Unknown] Enoxaparin [Lovenox 40 MG (*)] 40 mg SC DAILY #10 syr 05/13/18 [Last Taken Unknown] Ibuprofen [Motrin (*)] 400 mg PO Q8H PRN #0 05/13/18 [Last Taken Unknown] Melatonin [Melatonin 3 MG (*)] 3 mg PO HS tab 05/13/18 [Last Taken Unknown] Sennosides/Docusate Sodium [Senokot-S] 1 - 2 tab PO BID tab 05/13/18 [Last Taken Unknown] Polyethylene Glycol 3350 [Miralax 17 gm (*)] 17 gm PO DAILY PRN pkt 05/15/18 [ Last Taken Unknown] Discharge Medications: Refer to the Discharge Home Medication list for PRN reason. PICC Care - Routine: N/A - Orders Services needed: Registered Nurse, Master Control Analyst, Physical Therapy, Occupational Therapy Oxygen: 2 liters Diet Recommendation: no restrictions on diet Diet Texture: Regular Texture Diet Additional Instructions: WBAT to left lower extremity w posterior hip precautiions, abductor wedge while in bed. encourage incentive spirometer hourly continue lovenox x 2 weeks - Labs/Radiology BMP Date: 05/20/18 HCT/HGB Date: 05/20/18 - Follow Up Care Current Providers and Referrals: HAYLEY VELIZ [Other] - As per Instructions Nasir Borges MD [Medical Doctor] -
[2018-05-15 15:44] VITALS: BP 119/77
--- NOTE | 2018-05-15 15:58 | ASMTLACE ---
MANNY Length of stay for Answers: 4-6 days current admission Acuity / Level of Answers: Yes Care: Did the patient have an inpatient admission? Comorbidities - select Answers: Cerebrovascular disease all that apply (CVA, TIA, aneurysms, vasc ular dementia) Other Notes: Polio; Macular degeneration; HLD; Hypo thy roidism # of Emergency department Answers: 1-2 visits in the last 6 months Social determinants Answers: Mental health diagnosis (anxiety, depression, pers onality disorders, etc.) Score: 13 Date Signed: 05/15/2018 03:58 PM Electronically Signed By:RAMANDEEP Bedolla
--- NOTE | 2018-05-15 15:59 | GDS ---
[f rep st] DISCHARGE SUMMARY DIAGNOSIS DIAGNOSES: 1. Left femoral neck fracture, status post hemiarthroplasty. 2. Acute hypoxemic respiratory failure. 3. Dizziness. 4. Pyuria. 5. Depression. 6. Hypothyroidism. 7. Macular degeneration. 8. History of transient ischemic attack. CONSULTATION: Dr. Borges. HISTORY: Briefly, the patient is an 83-year-old woman with a history of a TIA, macular degeneration, and intermittent vertigo. She presented to the emergency room with left hip pain. She was getting ready for breakfast and became very dizzy and fell in her apartment. She was unable to get up and developed hip pain immediately. She did not hit her head or lose consciousness. She came to the emergency room and was noted to have a left femoral neck fracture. She was seen and evaluated by Dr. Borges, and on 05/10, she had a bipolar hemiarthroplasty on the left side. The patient has done overall well in her recovery. The plan is for her to be discharged to [facility] in [place]. HOSPITAL COURSE: 1. Left femoral neck fracture, status post hemiarthroplasty. Doing very well with this. Oxycodone was discontinued due to altered mental status. 2. Acute hypoxemic respiratory failure. She usually is not on oxygen. The chest x ray shows she has a large hiatal hernia and possible small effusions, as well as atelectasis. Encouraged her to do the incentive spirometer hourly. 3. Dizziness, resolved. 4. Pyuria. No complaints. Urine culture shows no growth. 5. Depression, on Cymbalta and Wellbutrin. 6. Hypothyroidism, on Synthroid. TSH is stable. 7. Macular degeneration. Recommendations to use a walker anytime she is up ambulating. 8. History of TIA. No signs or symptoms. DISCHARGE CONDITION: Stable. Blood pressure is 112/67, heart rate is 69, respiratory rate of 19, O2 sats on room air 94%, temperature is 37.1 Celsius. MEDICATIONS AT DISCHARGE: Please see the EMR. DISCHARGE INSTRUCTIONS: 1. Weightbearing as tolerated to her left lower extremity with posterior hip precautions. Do use the abductor wedge while in bed. 2. To get repeat labs in approximately a week. 3. To continue Lovenox for 2 weeks. 4. Further followup with Dr. Borges. Greater than 30 minutes discharging and coordinating the patient's care. /[id number]/MODL MTDD
--- NOTE | 2018-05-15 16:05 | ASMTCMCOM ---
CM Note CM Note Notes: Pt medically stable for d/c to [facility]. Orders sent in Allscripts. Kalyani SEBASTIAN scheduled transport van for 1630. CAT Lorenzana to call report. Date Signed: 05/15/2018 04:04 PM Electronically Signed By:RAMANDEEP Bedolla
--- NOTE | 2018-05-16 16:01 | ASDISCHSUM ---
Discharge Information Plan Status:SNF Medically Cleared to Leave: Discharge Date:05/15/2018 05:07 PM D/C Disposition:Nursing Home Facility ADT D/C Disposition:Nursing Home Facility Projected Discharge Date:05/13/2018 11:00 AM Transportation at D/C:Wheelchair Van Discharge Delay Reason: Follow-Up Date:05/13/2018 11:00 AM Discharge Slot: Final Diagnosis: Placement Information Referral Type:*Skilled Nursing/SNF Referral ID:[id number] Provider Name:[facility] Address 1:[address] Address 2: City:[place] Selection Factors: State:[place] Patient Contact Information Contact Name:DOLORES Relationship:Daughter Address:[address] City:[place] Alternate Phone: State/Zip Code:[place] [address] Email: Financial Information Financial Class:Medicare Advantage Plans Primary Plan Desc:[facility] [employer] Primary Plan Number:[id number] Secondary Plan Desc: Secondary Plan Number: Assessment Information LACE LACE Length of stay for Answers: 4-6 days current admission Acuity / Level of Answers: Yes Care: Did the patient have an inpatient admission? Comorbidities - select Answers: Cerebrovascular disease all that apply (CVA, TIA, aneurysms, vasc ular dementia) Other Notes: Polio; Macular degeneration; HLD; Hypo thy roidism # of Emergency department Answers: 1-2 visits in the last 6 months Social determinants Answers: Mental health diagnosis (anxiety, depression, pers onality disorders, etc.) Score: 13 Date Signed: 05/15/2018 03:58 PM Electronically Signed By:RAMANDEEP Bedolla [facility] Progress Note CM Note CM Note Notes: Chart reviewed. Pt s/p surgical repair of hip fracture. Per therapy SNF recommended. Family ( daughter Ariadne [phone]) prefers [facility] or [facility]. Referrals placed via allscripts. CM to follow. Plan: DC to SNF when medically cleared for discharge. Date Signed: 05/12/2018 12:39 PM Electronically Signed By:Christel Starkey RN [facility] Progress Note CM Note CM Note Notes: Recieved call from [facility] in [place], they can accept pt tomorrow for rehab. Dtr Ariadne notified and agrees with plan. DC Plan: SNF/ [facility] Date Signed: 05/13/2018 03:20 PM Electronically Signed By:Fern Ashby RN [facility] Progress Note CM Note CM Note Notes: Received call back from Natacha at [facility] at [place], she just realized pt has a [employer] advantage plan and they are not yet in network. She called and notified the patient's dtr Ariadne. [facility] can accept pt but cannot take her until Sunday. MARLYN notified . MARIA TERESA Plan: [facility] Date Signed: 05/13/2018 03:46 PM Electronically Signed By:Fern Ashby RN [facility] CM Progress Note CM Note CM Note Notes: Pt medically stable for d/c to [facility]. Orders sent in Allscripts. Kalyani SEBASTIAN scheduled [facility] transport van for 1630. CAT Lorenzana to call report. Date Signed: 05/15/2018 04:04 PM Electronically Signed By:RAMANDEEP Bedolla Intervention Information Intervention Type:*IM-Signed Date of Service:05/15/2018 03:20 PM Patient Type:Inpatient Staff Member:Kailey Navarro Hours: Discipline: Severity: Comment:
== END 2018-05-15 17:07 | DRG 469 ==
LOC: EDUNIT# → F3N 13:25
PROVIDERS: ADMIT Internal Medicine; ATTEND Internal Medicine
PROC: 0SRS0JZ Replacement of Left Hip Joint, Femoral Surface with Synthetic Substitute, Open Approach (ICD-10-PCS; principal; 2018-05-10 17:00)
DX: S72.002A Fracture of unspecified part of neck of left femur, initial encounter for closed fracture (principal); J96.01 Acute respiratory failure with hypoxia; J98.11 Atelectasis; R41.82 Altered mental status, unspecified; T40.2X5A Adverse effect of other opioids, initial encounter; H35.30 Unspecified macular degeneration; E78.5 Hyperlipidemia, unspecified; R01.1 Cardiac murmur, unspecified; E03.9 Hypothyroidism, unspecified; H81.10 Benign paroxysmal vertigo, unspecified ear; F32.9 Major depressive disorder, single episode, unspecified; Z86.73 Personal history of transient ischemic attack (TIA), and cerebral infarction without residual deficits; Z66 Do not resuscitate; W19.XXXA Unspecified fall, initial encounter; Y92.039 Unspecified place in apartment as the place of occurrence of the external cause
CPT/HCPCS: 84484-PO; 96374; 97116-GP; 97161-GP; 97165-GO; 97530-GO; 97530-GP; 97535-GO; G8978-GP-CL; G8979-GP-CJ; G8987-GO-CL; G8988-GO-CK; J0690; J1100; J1170; J1650; J2270; J2405; J2550; J2704; J3010

== ENCOUNTER 2018-08-22 15:06 | Inpatient (IN) | payer OTHER ==
--- NOTE | 2018-08-22 15:14 | EDPHY ---
H & P Time Seen by Provider: 08/22/18 15:11 HPI/ROS: HPI CHIEF COMPLAINT: Shortness of breath. HISTORY OF PRESENT ILLNESS: Patient 83-year-old female, presents emergency room by ambulance for shortness of breath. She resides at a living facility, has dementia. EMS was called and fire last night to see her for shortness of breath. However was placed on supplemental oxygen 4 L and felt better and not transported. She arrives to the emergency room due to increasing shortness of breath. EMS reports she had a room air saturation of 80%. Tachypneic in the high 20s. Patient denies any chest pain. Denies any focal complaint. However does arrived to the ER with O2 sat of 80% room air. Past Medical History: Patient has a history of hypoxic respiratory failure, TIA , macular degeneration, dementia, pyuria, recent left hip fracture Past Surgical History: No recent surgery Social History: Denies drugs alcohol tobacco. Family History: Noncontributory ROS REVIEW OF SYSTEMS: 10 Systems were reviewed and negative with the exception of the elements mentioned in the history of present illness. Exam Constitutional elderly, frail, triage nursing summary reviewed, vital signs reviewed, awake/alert. Eyes normal conjunctivae and sclera, EOMI, PERRLA. HENT normal inspection, atraumatic, moist mucus membranes, no epistaxis, neck supple/ no meningismus, no raccoon eyes. Respiratory decreased breath sounds bilaterally however worse on the left than right. Crackles on the left lung. Cardiovascular rate normal, regular rhythm, no murmur, no edema, distal pulses normal. Gastrointestinal soft, non-tender, no rebound, no guarding, normal bowel sounds, no distension, no pulsatile mass. Genitourinary no CVA tenderness. Musculoskeletal no significant pitting edema. no midline vertebral tenderness, full range of motion, no calf swelling, no tenderness of extremities, no meningismus, good pulses, neurovascularly intact. Skin pink, warm, & dry, no rash, skin atraumatic. Neurologic alert and oriented x1 at baseline. moves all 4 extremities equally , motor intact, sensory intact, CN II-XII intact, normal cerebellar, normal vision, normal speech. Psychiatric normal mood/affect. Heme/Lymph/Immune no lymphadenopathy. Differential Diagnosis: Includes but is not limited to in a particular order pneumonia, viral syndrome, reactive airway disease, CHF, acute coronary syndrome , pleural effusion, atelectasis, hiatal hernia, chronic hypoxic respiratory failure Medical Decision Making: Plan for this patient IV establishment blood draw, blood cultures, lactic acid, chest x-ray, IV establishment, breaker machine operator, EKG , troponin. Re-evaluation: EKG interpretation by me on record in [employer] system. Impression time of EKG 1539, sinus rhythm rate of 83, left anterior fascicular block. Without any signs of acute ischemia Q-waves noted V1 V2. No ST elevation. When compared to old EKG 05/10/2018 very similar morphology. Patient's chest x-ray reviewed this shows large hiatal hernia visualized. Pneumonia left lower lung. Patient received blood cultures. IV Levaquin will be given. Patient need to be admitted to the hospitalist service for hypoxia, left lower lobe infiltrate. Additionally the patient's troponin is noted to be positive. She does not have any chest pain. Patient noted to have elevated lactic 2.8. She is afebrile. However pneumonia visualized on chest x-ray. Will give her gentle IV fluids and repeat her lactic acid. I spoke with the hospitalist service at 4:21 p.m.. Plan for admission for hypoxia, elevated troponin, elevated BNP. Elevated lactic. Chest x-ray reviewed shows pneumonia. IV Levaquin has been ordered. Blood culture sent. EKG shows no new acute ischemia. Plan for admission to the hospital service spoke with Dr. Cerrato agrees to admit. At time of admission patient is pending a repeat lactic acid after IV fluid, and Levaquin. Source: Patient, EMS - Medical/Surgical History Hx Asthma: No Hx Chronic Respiratory Disease: No Hx Diabetes: No Hx Cardiac Disease: No Hx Renal Disease: No Hx Cirrhosis: No Hx Alcoholism: No Hx HIV/AIDS: No Hx Splenectomy or Spleen Trauma: No Other PMH: macular degeneration, Hypothyroid, hyperlipidemia, depression, osteoporosis, TIA, forearm fx, polio, - Social History Smoking Status: Never smoked Constitutional: Initial Vital Signs O2 Sat (%) 93 08/22/18 15:10 O2 Delivery Mode Nasal Cannula O2 (L/minute) 2 Allergies/Adverse Reactions: Sulfa (Sulfonamide Antibiotics) Allergy (Verified 05/10/18 08:57) Home Medications: Medication Instructions Recorded Levothyroxine [Synthroid 50 mcg 50 mcg PO DAILY 07/26/16 (*)] Cholecalciferol Vit D3 [Vitamin D3 5,000 units PO DAILY 05/10/16 (*)] Herbals/Supplements -Info Only 1 ea PO DAILY 05/10/16 DULoxetine [Cymbalta 30 MG (*)] 30 mg PO DAILY 05/10/18 Ibuprofen [Motrin (*)] 400 mg PO Q8H PRN #0 05/13/18 Melatonin [Melatonin 3 MG (*)] 3 mg PO HS tab 05/13/18 Divalproex ER [Depakote ER 250 MG 250 mg PO BID 08/22/18 (*)] QUEtiapine FUMARATE [Seroquel 25 25 mg PO HS 08/22/18 mg (*)] Sennosides/Docusate Sodium 1 tab PO HS 08/22/18 [Senokot-S] Medical Decision Making - Data Points Laboratory Results: Laboratory Results 08/22/18 15:06 08/22/18 15:06 Medications Given: Divalproex Sodium (Depakote Er) 250 mg PO BID [facility] Stop: 02/19/19 08:59 Last Admin: 08/23/18 08:32 Dose: 250 mg Duloxetine HCl (Cymbalta) 30 mg PO DAILY DAVID Stop: 02/19/19 08:59 Last Admin: 08/23/18 08:32 Dose: 30 mg Enoxaparin Sodium (Lovenox) 70 mg SC BID DAVID Stop: 02/19/19 11:29 Last Admin: 08/23/18 11:37 Dose: 70 mg Levothyroxine Sodium (Synthroid) 50 mcg PO DAILY DAVID Stop: 02/19/19 08:59 Last Admin: 08/23/18 08:32 Dose: 50 mcg Discontinued Medications Heparin Sodium (Porcine) (Heparin Injection) 0 unit IVP ONCE ONE Stop: 08/22/18 19:48 Last Admin: 08/22/18 21:23 Dose: 5,800 units Levofloxacin/Dextrose (Levaquin 750 Mg (Premix)) 150 mls @ 100 mls/hr IV EDNOW ONE PRN Reason: Protocol Stop: 08/22/18 17:19 Last Admin: 08/22/18 16:40 Dose: 150 mls Sodium Chloride (Ns) 1,000 mls @ 0 mls/hr IV ONCE ONE PRN Reason: Wide Open Stop: 08/22/18 16:15 Last Admin: 08/22/18 16:39 Dose: 1,000 mls Heparin Sodium (Porcine) (Heparin 50 Units/Ml (Premix)) 500 mls @ 0 mls/hr IV CONT DAVID; Per Protocol PRN Reason: Protocol Stop: 02/18/19 19:59 Last Admin: 08/22/18 21:24 Dose: 500 mls Point of Care Test Results: Chemistry 08/22/18 15:23 POC Troponin I 0.16 ng/mL H ng/mL (0.00-0.08) Departure - Departure Disposition: [facility] Acute Clinical Impression: Hypoxia, Hiatal hernia, Elevated troponin Condition: Fair
[2018-08-22 15:31] LABS: PLATELET COUNT 249 10^3/uL (150-400)
[2018-08-22 15:42] LABS: PROTIME(PATIENT) 13.4 SEC (12.0-15.0)
[2018-08-22] MEDS ORDERED: NS 1,000 ML IV ONE (16:14)
--- NOTE | 2018-08-22 17:53 | PDGENHP ---
History and Physical - Chief Complaint SOB - History of Present Illness 83 yo female with h/o dementia and TIA presents to ED with SOB. She lives at [facility] in [place] and has complained of increasing SOB over past 2-3 days. Last night EMS was called and she was found to be quite tachypneic. She apparently refused transfer to ED (Note [facility]OL[facility] form states DNR/comfort). She denies cough, CP or pressure. No fevers or chills. She does endorse orthopnea, no PND. Increased LE edema R>L, though daughter notes this is chronic. Cardiac risk factors include hyperlipidemia, family h/o heart disease. She suffered a femur fracture in 05/2018 and underwent operative repair. She has had decreased mobility since then. In the ED, she is requiring 2 LPM O2. Troponin is elevated. Blood cultures are drawn. She was given IV Levaquin and is admitted for further evaluation and managemnet. History Information - Allergies/Home Medication List Allergies/Adverse Reactions: Sulfa (Sulfonamide Antibiotics) Allergy (Verified 05/10/18 08:57) Home Medications: Levothyroxine [Synthroid 50 mcg (*)] 50 mcg PO DAILY 05/09/16 [Last Taken ] Cholecalciferol Vit D3 [Vitamin D3 (*)] 5,000 units PO DAILY 05/10/16 [Last Taken 08/22/18] Herbals/Supplements -Info Only 1 ea PO DAILY 05/10/16 [Last Taken 08/21/18] DULoxetine [Cymbalta 30 MG (*)] 30 mg PO DAILY 05/10/18 [Last Taken 08/22/18] Divalproex ER [Depakote ER 250 MG (*)] 250 mg PO BID 08/22/18 [Last Taken 08:00] QUEtiapine FUMARATE [Seroquel 25 mg (*)] 25 mg PO HS 08/22/18 [Last Taken ] Sennosides/Docusate Sodium [Senokot-S] 1 tab PO HS 08/22/18 [Last Taken 08/21/18 ] I have personally reviewed and updated: family history, medical history, social history, surgical history - Past Medical History Additional medical history: Dementia. TIA. Hiatal hernia. Macular degeneration - Surgical History Additional surgical history: Left hip hemiarthroplasty 05/14/2018 - Family History Positive for: non-pertinent - Social History Smoking Status: Never smoked Alcohol Use: None Drug Use: None Additional social history: Lives at [facility]. Ariadne Quijano is MDPOA, at bedside. Review of Systems Review of Systems: ROS: 10pt was reviewed & negative except for what was stated in HPI & below Physical Exam Physical Exam: Temp Pulse Resp BP Pulse Ox 36.5 C 79 22 H 115/69 92 08/22/18 15:23 08/22/18 16:00 08/22/18 16:00 08/22/18 16:00 08/22/18 16:00 Constitutional: no apparent distress Eyes: PERRL Ears, Nose, Mouth, Throat: moist mucous membranes Cardiovascular: regular rate and rhythym Respiratory: no respiratory distress, other (bibasilar crackles) Gastrointestinal: normoactive bowel sounds, soft, non-tender abdomen Skin: warm Musculoskeletal: full muscle strength, other (b/l LE edema R>L) Neurologic: AAOx3 Psychiatric: interacting appropriately, poor memory Lab Data & Imaging Review 08/22/18 20:20 08/22/18 15:06 WBC 10.50 10^3/uL (3.80-9.50) H 08/22/18 15:06 RBC 5.49 10^6/uL (4.18-5.33) H 08/22/18 15:06 Hgb 15.9 g/dL (12.6-16.3) 08/22/18 15:06 Hct 48.9 % (38.0-47.0) H 08/22/18 15:06 MCV 89.1 fL (81.5-99.8) 08/22/18 15:06 MCH 29.0 pg (27.9-34.1) 08/22/18 15:06 MCHC 32.5 g/dL (32.4-36.7) 08/22/18 15:06 RDW 14.6 % (11.5-15.2) 08/22/18 15:06 Plt Count 249 10^3/uL (150-400) 08/22/18 15:06 MPV 9.8 fL (8.7-11.7) 08/22/18 15:06 Neut % (Auto) 78.1 % (39.3-74.2) H 08/22/18 15:06 Lymph % (Auto) 10.6 % (15.0-45.0) L 08/22/18 15:06 Sanborn % (Auto) 9.8 % (4.5-13.0) 08/22/18 15:06 Eos % (Auto) 0.8 % (0.6-7.6) 08/22/18 15:06 Baso % (Auto) 0.4 % (0.3-1.7) 08/22/18 15:06 Nucleat RBC Rel Count 0.0 % (0.0-0.2) 08/22/18 15:06 Absolute Neuts (auto) 8.21 10^3/uL (1.70-6.50) H 08/22/18 15:06 Absolute Lymphs (auto) 1.11 10^3/uL (1.00-3.00) 08/22/18 15:06 Absolute Monos (auto) 1.03 10^3/uL (0.30-0.80) H 08/22/18 15:06 Absolute Eos (auto) 0.08 10^3/uL (0.03-0.40) 08/22/18 15:06 Absolute Basos (auto) 0.04 10^3/uL (0.02-0.10) 08/22/18 15:06 Absolute Nucleated RBC 0.00 10^3/uL (0-0.01) 08/22/18 15:06 Immature Gran % 0.3 % (0.0-1.1) 08/22/18 15:06 Immature Gran # 0.03 10^3/uL (0.00-0.10) 08/22/18 15:06 PT 13.4 SEC (12.0-15.0) 08/22/18 15:06 INR 1.00 (0.83-1.16) 08/22/18 15:06 APTT 26.6 SEC (23.0-38.0) 08/22/18 15:06 VBG Lactic Acid 2.8 mmol/L (0.7-2.1) H 08/22/18 15:58 Sodium 138 mEq/L (135-145) 08/22/18 15:06 Potassium 4.2 mEq/L (3.3-5.0) 08/22/18 15:06 Chloride 100 mEq/L (97-110) 08/22/18 15:06 Carbon Dioxide 25 mEq/l (22-31) 08/22/18 15:06 Anion Gap 13 mEq/L (6-14) 08/22/18 15:06 BUN 20 mg/dL (7-23) 08/22/18 15:06 Creatinine 0.8 mg/dL (0.6-1.0) 08/22/18 15:06 Estimated GFR > 60 08/22/18 15:06 Glucose 134 mg/dL (70-100) H 08/22/18 15:06 Calcium 10.3 mg/dL (8.5-10.4) 08/22/18 15:06 Magnesium 2.0 mg/dL (1.6-2.3) 08/22/18 15:06 Total Bilirubin 0.4 mg/dL (0.1-1.4) 08/22/18 15:06 Conjugated Bilirubin 0.2 mg/dL (0.0-0.5) 08/22/18 15:06 Unconjugated Bilirubin 0.2 mg/dL (0.0-1.1) 08/22/18 15:06 AST 21 IU/L (14-46) 08/22/18 15:06 ALT 22 IU/L (9-52) 08/22/18 15:06 Alkaline Phosphatase 86 IU/L (38-126) 08/22/18 15:06 POC Troponin I 0.16 ng/mL (0.00-0.08) H 08/22/18 15:23 Troponin I 0.173 ng/mL (0.000-0.034) H 08/22/18 15:06 NT-Pro-B Natriuret Pep 3030 pg/mL (0-450) H 08/22/18 15:06 Total Protein 7.9 g/dL (6.3-8.2) 08/22/18 15:06 Albumin 4.4 g/dL (3.5-5.0) 08/22/18 15:06 Visualized and Interpreted Chest x-ray results: Yes Chest X-Ray results: other (possible LLL infiltrate vs compressive atelectasis 2 /2 HH) Visualized and Interpreted EKG results: Yes EKG Interpretation: Positive for: Q waves EKG additional interpertation: NSR, mild ST elevation in V1, V2 Assessment & Plan Assessment: AHRF 2/2 acute PE - 2 LPM. STAT CTA pos for central right sided PE. Possibly provoked by recent surgery (3 months ago) and decreased mobility -start heparin drip, can likely transition to Lovenox or oral AC in am -echo pending to eval RV function -wean O2 as able Elevated troponin - likely strain in setting of PE. -trending down Macular degeneration - needs assistance with vision per daughter Hypothyroid - cont levothyroxine Dementia DNR / comfort MOLST - daughter, Ariadne, is MDPOA, wishes for treatment but no aggressive interventions DVT PPLX - Heparin Dispo - admit to inpt, anticipate >48 hrs hospitalization for further management of hypoxemia 2/2 PE
[2018-08-22] MEDS ORDERED: ONDANSETRON DISINTEGRATING 4 MG TAB PO PRN (18:30)
[2018-08-22] MEDS ORDERED: ONDANSETRON 4 MG/2 ML VIAL IVP PRN (18:30)
[2018-08-22] MEDS ORDERED: ACETAMINOPHEN 325 MG TAB PO PRN (18:30)
[2018-08-22] MEDS ORDERED: IOPAMIDOL (ISOVUE 370) 100 ML BTL IV ONE (19:10)
[2018-08-22] MEDS ORDERED: HEPARIN 10,000 UNIT/10 ML MDV (1,000 UNIT/ML) IVP PRN (19:47)
[2018-08-22] MEDS ORDERED: HEPARIN 10,000 UNIT/10 ML MDV (1,000 UNIT/ML) IVP ONE (19:47)
[2018-08-22] MEDS ORDERED: HEPARIN/DEXTROSE 500 ML IV SCH (20:00)
[2018-08-22 20:44] LABS: INR 1.06 (0.83-1.16)
[2018-08-22 20:46] LABS: PLATELET COUNT 161 10^3/uL (150-400)
--- NOTE | 2018-08-22 23:01 | CPEKG ---
Test Reason : OPEN Blood Pressure : / mmHG Vent. Rate : 083 BPM Atrial Rate : 083 BPM P-R Int : 184 ms QRS Dur : 093 ms QT Int : 360 ms P-R-T Axes : 049 -49 057 degrees QTc Int : 423 ms Sinus rhythm Left anterior fascicular block Anteroseptal infarct, age indeterminate Confirmed by Yobani De Los Santos ([id number]) on 08/22/2018 11:01:14 PM Referred By: Confirmed By:Yobani De Los Santos
[2018-08-23 04:25] LABS: PLATELET COUNT 209 10^3/uL (150-400)
[2018-08-23] MEDS: LEVOTHYROXINE 50 MCG TAB PO SCH (08:32)
[2018-08-23] MEDS: DIVALPROEX ER 250 MG TAB PO SCH ×2 (08:32→20:09)
[2018-08-23] MEDS: DULoxetine 30 MG CAP PO SCH (08:32)
[2018-08-23] MEDS ORDERED: ENOXAPARIN 40 MG/0.4 ML SYR SC SCH (09:00)
--- NOTE | 2018-08-23 09:56 | PDMN ---
Medical Necessity Medical necessity: Pt meets inpt criteria per MD order and MCG M-290, Pulmonary Embolism, A-4 days. 83 y/o admitted w/acute hypoxic resp failure secondary to PE , confirmed w/CT, elevated troponins, likely strain in setting of PE. Pt requiring 3-4 L suppl O2, IV heparin gtt, anticipate> 2MN for ongoing monitoring /treatment.
[2018-08-23] MEDS: ENOXAPARIN 80 MG/0.8 ML SYR SC SCH ×2 (11:37→22:36)
--- NOTE | 2018-08-23 11:43 | ASMTCMCOM ---
CM Note CM Note Notes: Pts case discussed in tx rounds. Pt is a 83 y/o female admitted for PNA and CHF. Pt will be switched from heparin to lovenox. Pt has a clot. Pt has a supportive daughter. Pt was currently residing at [facility]. Pt is currently a 2 person assist. Pt has dementia. Therapies have been ordered and awaiting recommendations. Needs are TBD at this time. CM to follow. Plan: TBD Date Signed: 08/23/2018 11:43 AM Electronically Signed By:SAMEER Gómez
--- NOTE | 2018-08-23 15:42 | HOSPPROG ---
Hospitalist Progress Note Assessment/Plan: * Acute pulmonary embolus - large clot -change IV heparin to SubQ Lovenox -change to Eliquis at discharge * Acute respiratory failure -as evidenced by hypoxia, increased resp rate with respiratory distress -now on 4L - wean as able * Troponin elevation -due to strain from PE * Lactate elevation - improved -hemodynamic from large PE * Recent femur fracture -likely the reason for her current PE * Advanced dementia Subjective: No new complaints. Objective: Vital Signs Temp Pulse Resp BP Pulse Ox 36.6 C 91 18 102/70 94 08/23/18 12:00 08/23/18 12:00 08/23/18 12:00 08/23/18 12:00 08/23/18 12:00 Laboratory Results 08/23/18 03:50 08/23/18 03:50 08/22/18 08/23/18 08/24/18 05:59 05:59 05:59 Intake Total 930 Output Total 950 Balance 930 -950 PT 14.0 SEC (12.0-15.0) 08/22/18 20:20 INR 1.06 (0.83-1.16) 08/22/18 20:20 CTA chest reviewed - large PE EKG viewed, my personal interpretation is - NSR, TWI V1/V2 - Physical Exam Constitutional: no apparent distress, appears nourished, not in pain Cardiovascular: regular rate and rhythym, no murmur, rub, or gallop Respiratory: no rales or rhonchi, clear to auscultation, respiratory distress ( tachypneic at rest) Gastrointestinal: normoactive bowel sounds, soft, non-tender abdomen, no palpable masses Skin: no rashes or abrasions, no fluctuance, no induration Neurologic: sensation intact bilaterally, No AAOx3 Psychiatric: interacting appropriately, poor insight, poor judgement, poor memory, No encephalopathic, No agitated ICD10 Worksheet Patient Problems: Problems Problem Status Onset Vertigo Acute Hypoxemia Acute Risk for falls Acute Closed left hip fracture Acute Hypoxia Acute Hiatal hernia Acute Elevated troponin Acute
--- NOTE | 2018-08-23 15:54 | ECHO ---
[email or web address] [address] [address] Main: [phone] Fax: Transthoracic Echocardiogram Name: NAVA MANRIQUEZ MR#: [id number] Study Date: 08/23/2018 Study Time: 08:08 AM Date of : 1935 Age: 83 year(s) Height: 160 cm (63 in.) Weight: 68.49 kg (151 lb.) BSA: 1.72 m2 Gender: Female Examination: Echo Indication: Shortness of breath, Elevated Troponins Image Quality: Contrast: Requested by: Cici Cerrato BP: 107 mmHg/68 mmHg Heart Rate: Rhythm: Indication: Shortness of breath, Elevated Troponins Procedure Staff Health Information Technologist: Remberto Hair RDCS Reading Physician: Aamir Lutz MD Requesting Provider: Conclusions: Normal size left ventricle. Mild concentric LV hypertrophy. Normal global systolic LV function. EF is 62 %. Diastolic dysfunction is present. . Mildly dilated right ventricle. Mildly to moderately reduced right ventricular function. Mild mitral valve leaflet calcification is present. There is no significant mitral valve regurgitation. No mitral stenosis is present. The aortic valve is trileaflet. There is no aortic stenosis or insufficiency.. Right Ventricular systolic pressure is measured at 38 mmHg. No old studies for comparison. Measurements: Chambers Valvular Assessment AV/MV Valvular Assessment TV/PV Normal Normal Normal Name Value Range Name Value Range Name Value Range Ao Rubi (MM): 3.2 cm (2.2 cm-3.7 AV Vmax: 1.52 m/s (1 m/s-1.7 TR Vmax: 2.89 mm/s ( - ) cm) m/s) TR PGmax: 33 mmHg ( - ) IVSd (2D): 0.8 cm (0.6 cm-1.1 AV maxP mmHg ( - ) syst. PAP: 38 mmHg ( - ) cm) LVOT Vmax: 1.19 m/s (0.7 m/s-1.1 LVDd (2D): 3.9 cm (3.9 cm-5.3 m/s) cm) MV E Vmax: 0.71 m/s ( - ) LVDs (2D): 2.6 cm (2.1 cm-4 MV A Vmax: 1.31 m/s ( - ) cm) MV E/A: 0.54 ( - ) LVPWd (2D): 0.9 cm ( - ) LVEF (2D): 62 (>=54 %) Continued Measurements: Patient: NAVA MANRIQUEZ Study Date: 08/23/2018 Page 1 of 2 08:08 AM Chambers Valvular Assessment AV/MV Valvular Assessment TV/PV Name Value Name Value Name Value LADs Lon.0 cm MV E' Septal: 0.06 m/s CVP (est.): 5 mmHg LA Area: 14.4 cm2 MV E/E' Septal: 11.30 LA Volume: 39 ml MV E/E' Lateral: 17.70 LA Volume Index: 22.7 ml/m2 Findings: Left Ventricle: Normal size left ventricle. Mild concentric LV hypertrophy. Normal global systolic LV function. EF is 62 %. No regional wall motion abnormality. Diastolic dysfunction is present. . Right Ventricle: Mildly dilated right ventricle. Mildly to moderately reduced right ventricular function. Left Atrium: The left atrium is normal in size. Right Atrium: The right atrium is normal in size. Mitral Valve: Mild mitral valve leaflet calcification is present. There is no significant mitral valve regurgitation. No mitral stenosis is present. Aortic Valve: The aortic valve is trileaflet. There is no aortic stenosis or insufficiency.. Tricuspid Valve: The tricuspid valve is normal in appearance and function. The pulmonary artery pressure is normal. Right Ventricular systolic pressure is measured at 38 mmHg. Pulmonic Valve: The pulmonic valve is normal in appearance and function. Aorta: The aorta is normal. Pericardium: No pericardial effusion. (No Signature Object) Patient: NAVA MANRIQUEZ Study Date: 08/23/2018 Page 2 of 2 08:08 AM [id number]
[2018-08-23] MEDS: SENNOSIDES/DOCUSATE SODIUM TAB PO SCH (20:09)
[2018-08-23] MEDS: MELATONIN 3 MG TAB PO SCH (20:09)
[2018-08-23] MEDS: QUEtiapine FUMARATE 25 MG TAB PO SCH (20:09)
[2018-08-24] MEDS: LEVOTHYROXINE 50 MCG TAB PO SCH (09:06)
[2018-08-24] MEDS: DULoxetine 30 MG CAP PO SCH (09:06)
[2018-08-24] MEDS: DIVALPROEX ER 250 MG TAB PO SCH ×2 (09:06→21:25)
[2018-08-24] MEDS: ENOXAPARIN 80 MG/0.8 ML SYR SC SCH (09:06)
--- NOTE | 2018-08-24 12:44 | ASMTCMCOM ---
CM Note CM Note Notes: Spoke with patient and her daughter Ariadne. Abhishek would like patient to go to [facility]. I sent referral. Case Management will follow. Date Signed: 08/24/2018 12:43 PM Electronically Signed By:Keturah Griffin RN
--- NOTE | 2018-08-24 15:52 | HOSPPROG ---
Hospitalist Progress Note Assessment/Plan: * Acute pulmonary embolus - large clot -change to PO Eliquis * Acute respiratory failure -as evidenced by hypoxia, increased resp rate with respiratory distress -wean O2 * Troponin elevation -due to strain from PE * Lactate elevation - improved -hemodynamic from large PE * Recent femur fracture -likely the reason for her current PE * Advanced dementia Subjective: NO new complaints. Objective: Vital Signs Temp Pulse Resp BP Pulse Ox 36.3 C 101 H 16 101/64 92 08/24/18 15:14 08/24/18 15:14 08/24/18 15:14 08/24/18 15:14 08/24/18 15:14 Laboratory Results 08/23/18 03:50 08/23/18 03:50 08/23/18 08/24/18 08/25/18 05:59 05:59 05:59 Intake Total 930 970 Output Total 1250 700 Balance 930 -280 -700 PT 14.0 SEC (12.0-15.0) 08/22/18 20:20 INR 1.06 (0.83-1.16) 08/22/18 20:20 ICD10 Worksheet Patient Problems: Problems Problem Status Onset Vertigo Acute Hypoxemia Acute Risk for falls Acute Closed left hip fracture Acute Hypoxia Acute Hiatal hernia Acute Elevated troponin Acute
[2018-08-24] MEDS: APIXABAN 5 MG TAB PO SCH (21:25)
[2018-08-24] MEDS: QUEtiapine FUMARATE 25 MG TAB PO SCH (21:25)
[2018-08-24] MEDS: SENNOSIDES/DOCUSATE SODIUM TAB PO SCH (21:25)
[2018-08-24] MEDS: MELATONIN 3 MG TAB PO SCH (21:25)
[2018-08-25] MEDS: DIVALPROEX ER 250 MG TAB PO SCH ×2 (08:41→21:30)
[2018-08-25] MEDS: APIXABAN 5 MG TAB PO SCH ×2 (08:42→21:30)
[2018-08-25] MEDS: LEVOTHYROXINE 50 MCG TAB PO SCH (08:42)
[2018-08-25] MEDS: DULoxetine 30 MG CAP PO SCH (08:42)
--- NOTE | 2018-08-25 10:50 | PDIAF ---
- Diagnosis Diagnosis: Acute PE Code Status: Do Not Resuscitate - Medication Management Discharge Medications: electronically signed and located in the Home Medication List. - Orders Services needed: Physical Therapy, Occupational Therapy Oxygen: 3L Diet Recommendation: no restrictions on diet Additional Instructions: Decrease Eliquis to 5mg BID after 7 days - Follow Up Care Current Providers and Referrals: Gricelda Price PA [Primary Care Provider] - As per Instructions
--- NOTE | 2018-08-25 10:51 | ASMTCMCOM ---
CM Note CM Note Notes: [facility] SNF accepted referral, pending [facility] verification. Daughter Meghann called, shares she visited the SNF yesterday and is aware they are pending insurance verification, likely to have response on Sunday. We will keep her updated on discharge plan, . CM to follow. Current D/C Plan: [facility] when health coverage verification complete, likely Sunday 08/26. Date Signed: 08/25/2018 10:51 AM Electronically Signed By:Laura Burnett
--- NOTE | 2018-08-25 16:34 | HOSPPROG ---
Hospitalist Progress Note Assessment/Plan: * Acute pulmonary embolus - large clot -change to PO Eliquis * Acute respiratory failure -as evidenced by hypoxia, increased resp rate with respiratory distress -wean O2 * Troponin elevation -due to strain from PE * Lactate elevation - improved -hemodynamic from large PE * Recent femur fracture -likely the reason for her current PE * Advanced dementia * Urinary retention -follow bladder scan -straight cath prn Await rehab placement Subjective: No new complaints. Objective: Vital Signs Temp Pulse Resp BP Pulse Ox 36.6 C 91 19 103/57 L 94 08/25/18 12:00 08/25/18 12:00 08/25/18 12:00 08/25/18 12:00 08/25/18 12:00 Laboratory Results 08/23/18 03:50 08/23/18 03:50 08/24/18 08/25/18 08/26/18 05:59 05:59 05:59 Intake Total 970 550 Output Total 1250 1200 Balance -280 -650 PT 14.0 SEC (12.0-15.0) 08/22/18 20:20 INR 1.06 (0.83-1.16) 08/22/18 20:20 - Physical Exam Constitutional: no apparent distress, appears nourished, not in pain Cardiovascular: regular rate and rhythym, no murmur, rub, or gallop Respiratory: no respiratory distress, no rales or rhonchi, clear to auscultation Gastrointestinal: normoactive bowel sounds, soft, non-tender abdomen, no palpable masses Skin: no rashes or abrasions, no fluctuance, no induration Psychiatric: interacting appropriately, thought process linear, No anxious, No agitated ICD10 Worksheet Patient Problems: Problems Problem Status Onset Vertigo Acute Hypoxemia Acute Risk for falls Acute Closed left hip fracture Acute Hypoxia Acute Hiatal hernia Acute Elevated troponin Acute
[2018-08-25] MEDS: MELATONIN 3 MG TAB PO SCH (21:30)
[2018-08-25] MEDS: QUEtiapine FUMARATE 25 MG TAB PO SCH (21:30)
[2018-08-25] MEDS: SENNOSIDES/DOCUSATE SODIUM TAB PO SCH (21:30)
[2018-08-26 04:13] LABS: PLATELET COUNT 253 10^3/uL (150-400)
[2018-08-26] MEDS: DULoxetine 30 MG CAP PO SCH (11:00)
[2018-08-26] MEDS: APIXABAN 5 MG TAB PO SCH (11:00)
[2018-08-26] MEDS: LEVOTHYROXINE 50 MCG TAB PO SCH (11:01)
[2018-08-26] MEDS: DIVALPROEX ER 250 MG TAB PO SCH (11:01)
[2018-08-26 11:30] VITALS: BP 112/60
--- NOTE | 2018-08-26 15:36 | PDIAF ---
- Diagnosis Diagnosis: Acute PE Code Status: Do Not Resuscitate - Medication Management Additional Medication Instructions: Take eliquis 10mg BID through 08/30 (needs PM dose today on 08/26), then transition to 5mg BID on 08/31. Discharge Medications: electronically signed and located in the Home Medication List. - Orders Services needed: Physical Therapy, Occupational Therapy Oxygen: 3L Diet Recommendation: no restrictions on diet Additional Instructions: Here are your discharge instructions: 1. You had a pulmonary embolus (blood clot in your lungs). This was likely provoked in the setting of your recent leg fracture. To treat this, we have started you on blood thinners. You will take eliquis 10mg twice daily through and then transition to 5mg twice daily on 08/31. You need your dose this evening (PM of 08/26). 2. You are requiring 3 liters of supplemental oxygen. Hopefully this can be weaned down over the coming days/weeks. 3. I recommend that the staff at rehab scan your bladder at least once daily to ensure you are not retaining urine. 4. Otherwise, we did not make any medication changes. 5. Please follow up with your primary care doctor after leaving rehab. - Follow Up Care Current Providers and Referrals: Gricelda Price PA [Primary Care Provider] - As per Instructions
--- NOTE | 2018-08-26 15:44 | ASMTLACE ---
LACE Length of stay for Answers: 3 days current admission Acuity / Level of Answers: Yes Care: Did the patient have an inpatient admission? Comorbidities - select Answers: Cerebrovascular disease all that apply (CVA, TIA, aneurysms, vasc ular dementia) Dementia # of Emergency department Answers: 1-2 visits in the last 6 months Score: 11 Date Signed: 08/26/2018 03:43 PM Electronically Signed By:Kathya Gaspar RN
--- NOTE | 2018-08-26 15:55 | ASMTDCNOTE ---
Case Management Discharge Discharge Order Complete? Answers: Yes Patient to Obtain Answers: Other Notes: [facility] Medications Transportation Arranged Answers: Other Notes: [place] transport arranged by Natacha at [facility] Faxed Final Orders Answers: Yes Agency/Facility Transfer Answers: Yes Report Printed & Faxed to Receiving Agency Family Notified Answers: Yes Notes: i room Discharge Comments Notes: 08/26/2018 Case Management Note Notified by Natacha that auth recieved from [place]. Natacha arranged transport with [facility] in [place] at 16:30. Faxed final orders. RN called report. Discussed above with daughter Ariadne [phone]. Ariadne plans for pt to return to [facility] with home care PT upon d/c from [facility]. Provided info on Palliative care. Ariadne declined a referral and will call Jan if needed in the future. Phone call from Fifi at [facility]. Pt is current with [facility] RN PT OT. Fifi will contact [facility] in [place]. Date Signed: 08/26/2018 03:52 PM Electronically Signed By:Kathya Gaspar RN
--- NOTE | 2018-08-26 15:55 | ASDISCHSUM ---
Discharge Information Plan Status:SNF Medically Cleared to Leave:08/25/2018 Discharge Date:08/25/2018 CM D/C Disposition:Longterm Facility ADT D/C Disposition:Longterm Facility Projected Discharge Date:08/25/2018 11:00 AM Transportation at D/C:Wheelchair Van Discharge Delay Reason: Follow-Up Date:08/25/2018 11:00 AM Discharge Slot: Final Diagnosis: Placement Information Referral Type:*Care Home/SNF Referral ID:[id number] Provider Name:[facility]hem[facility] [place] Address 1:[address] [facility] Address 2: [facility]:[place] Selection Factors: State:[place] Patient Contact Information Contact Name:DOLORES Relationship:Daughter Address:[address] City:[place] Alternate Phone: State/Zip Code:[place] [address] Email: Financial Information Financial Class:Medicare Advantage Plans Primary Plan Desc:[facility] [employer] Primary Plan Number:[id number] Secondary Plan Desc: Secondary Plan Number: Assessment Information LACE LACE Length of stay for Answers: 3 days current admission Acuity / Level of Answers: Yes Care: Did the patient have an inpatient admission? Comorbidities - select Answers: Cerebrovascular disease all that apply (CVA, TIA, aneurysms, vasc ular dementia) Dementia # of Emergency department Answers: 1-2 visits in the last 6 months Score: 11 Date Signed: 08/26/2018 03:43 PM Electronically Signed By:Kathya Gaspar RN [facility] CM Progress Note CM Note CM Note Notes: Pts case discussed in tx rounds. Pt is a 83 y/o female admitted for PNA and CHF. Pt will be switched from heparin to lovenox. Pt has a clot. Pt has a supportive daughter. Pt was currently residing at [facility]. Pt is currently a 2 person assist. Pt has dementia. Therapies have been ordered and awaiting recommendations. Needs are TBD at this time. CM to follow. Plan: TBD Date Signed: 08/23/2018 11:43 AM Electronically Signed By:SAMEER Gómez [facility] CM Progress Note CM Note CM Note Notes: Spoke with patient and her daughter Ariadne. Abhishek would like patient to go to [facility]. I sent referral. Case Management will follow. Date Signed: 08/24/2018 12:43 PM Electronically Signed By:Keturah Griffin RN [facility] CM Progress Note CM Note CM Note Notes: [facility] accepted referral, pending [facility] verification. Daughter Meghann called, shares she visited the SNF yesterday and is aware they are pending insurance verification, likely to have response on Sunday. We will keep her updated on discharge plan, . CM to follow. Current D/C Plan: [facility] when health coverage verification complete, likely Sunday 08/26. Date Signed: 08/25/2018 10:51 AM Electronically Signed By:Laura Burnett Case Management Discharge Plan Note Case Management Discharge Discharge Order Complete? Answers: Yes Patient to Obtain Answers: Other Notes: [facility] [place] Medications Transportation Arranged Answers: Other Notes: [facility] transport arranged by Natacha at [facility] Faxed Final Orders Answers: Yes Agency/Facility Transfer Answers: Yes Report Printed & Faxed to Receiving Agency Family Notified Answers: Yes Notes: i room Discharge Comments Notes: 08/26/2018 Case Management Note Notified by Natacha that auth recieved from [place]. Natacha arranged transport with [facility] in [place] at 16:30. Faxed final orders. RN called report. Discussed above with daughter Ariadne [phone]. Ariadne plans for pt to return to [facility] with home care PT upon d/c from [facility]. Provided info on Palliative care. Ariadne declined a referral and will call Jan if needed in the future. Phone call from Fifi at [facility]. Pt is current with [facility] OT. Fifi will contact [facility] in [place]. Date Signed: 08/26/2018 03:52 PM Electronically Signed By:Kathya Gaspar RN Intervention Information
--- NOTE | 2018-08-26 18:12 | PDDCSUM ---
Discharge Summary Discharge Summary: Date of Admission: 08/22/2018 Date of Discharge: 08/26/2018 Procedures/Studies: 1. CTA chest - large central right pulmonary embolus 2. TTE - normal LV (EF 62%), diastolic dysfunction, RV mildly dilated, RV function mild-moderately down, RVSP 38mmHg Discharge Diagnoses: 1. Acute submassive pulmonary embolus 2. Acute respiratory failure 3. Troponin elevation 4. Lactate elevation 5. Recent left femur fracture s/p hemiarthroplasty 6. Dementia 7. Urinary retention 8. Hypothyroidism 9. H/o TIA 10. Depression Brief Hospital Course: 83yo F with recent hospitalization for left femur fracture who was reportedly taking her prophylactic LMWH presented after developing acute onset dyspnea found to have acute submassive right sided PE with respiratory failure. She was started on anticoagulation and clinically stabilized. She is being discharged on eliquis with recommendations to complete 3 months of therapy due to provoked nature of clot. She was weaned to 3L via NC at discharge. She did have a troponin and lactate elevation related to strain/hypoperfusion from the clot. She is still a bit deconditioned so is going to rehab for ongoing PT/OT. Medications: Please refer to EMR for complete list. Changes this admission include addition of eliquis. Follow Up Plan: 1. PCP visit to discuss length of anticoagulation 2. Switch from loading dose eliquis (10mg BID) to standard (5mg BID) after 7 days 3. Follow up with Dr Borges re: femoral fracture Physical Exam: Vitals and telemetry reviewed, normotensive with normal HR. O2 sats>90% on 3L NC. Alert and oriented to self/time/place but low attention span. RRR, lungs diminished on left side, abdomen soft and nt, no LE edema, no rashes.
== END 2018-08-26 16:36 | DRG 175 ==
LOC: EDUNIT# → F2W 18:20
PROVIDERS: ADMIT Hospitalist; ATTEND Hospitalist
DX: I26.99 Other pulmonary embolism without acute cor pulmonale (principal); J96.00 Acute respiratory failure, unspecified whether with hypoxia or hypercapnia; F03.90 Unspecified dementia, unspecified severity, without behavioral disturbance, psychotic disturbance, mood disturbance, and anxiety; R33.9 Retention of urine, unspecified; E03.9 Hypothyroidism, unspecified; F32.9 Major depressive disorder, single episode, unspecified; H35.30 Unspecified macular degeneration; Z66 Do not resuscitate; Z86.73 Personal history of transient ischemic attack (TIA), and cerebral infarction without residual deficits
CPT/HCPCS: 84484-PO; 85520-90; 97162-GP; 97166-GO; 97530-GO; 97530-GP; 97535-GO; G8978-GP-CL; G8979-GP-CI; G8987-GO-CK; G8988-GO-CJ; J1644; J1650; J1956; Q9967